=== PATIENT | female | born 1980 | race Caucasian/White ===

== ENCOUNTER 2017-01-17 06:30 | Day surgery (SDC) | payer MEDICAID ==
[2017-01-10 10:13] VITALS: BMI 21.9
[2017-01-16 17:09] VITALS: BMI 23.2
[~2017-01-17] VITALS: Ht 162.6 cm; Wt 61.9 kg
[~2017-01-17 06:30] MED LIST: CEFAZOLIN 1 GM/50 ML (PMX) 50 ML IVPB ONE; SOD CHLORIDE 0.9% 1,000 ML IV SCH
[2017-01-17] MEDS ORDERED: LIDOCAINE 2% (SDV) 5 ML INJ ONE (07:00)
[2017-01-17 07:11] VITALS: Ht 162.6 cm; Wt 61.9 kg
[2017-01-17 07:12] VITALS: BP 98/65; PULSE 64; RESP 18
[2017-01-17] MEDS ORDERED: PROPOFOL 60 ML ONE (08:51)
[2017-01-17] MEDS ORDERED: FENTAnyl 50 MCG/ML VIAL ONE (08:52)
[2017-01-17] MEDS ORDERED: DEXAMETHASONE 4 MG/ML 1 ML INJ ONE (08:59)
[2017-01-17] MEDS ORDERED: CEFAZOLIN 1 GM INJ ONE (08:59)
[2017-01-17 09:31] VITALS: BP 97/52; PULSE 73; RESP 19
[2017-01-17 09:36] VITALS: BP 94/52; PULSE 81; RESP 19
[2017-01-17 09:58] VITALS: BP 102/68; PULSE 70; RESP 19
[2017-01-17] MEDS ORDERED: EPHEDrine SULFATE 50 MG/5 ML SYG IV PRN (10:00)
[2017-01-17] MEDS ORDERED: FENTAnyl 50 MCG/ML VIAL IV PRN ×3 (10:00)
[2017-01-17] MEDS ORDERED: MEPERIDINE 25 MG INJ IV PRN (10:00)
[2017-01-17] MEDS ORDERED: hydrALAzine 20 MG INJ IV PRN (10:00)
[2017-01-17] MEDS ORDERED: LABETALOL HCL 20MG INJ IV PRN (10:00)
[2017-01-17] MEDS ORDERED: DIPHENHYDRAMINE 50 MG INJ IV PRN (10:00)
[2017-01-17] MEDS ORDERED: ONDANSETRON 4 MG INJ IV PRN (10:00)
[2017-01-17] MEDS ORDERED: OXYCODONE/ACETAMINOPHEN (5/325) TAB PO PRN ×2 (10:00)
[2017-01-17 10:15] VITALS: BP 105/64; PULSE 65; RESP 18
--- NOTE | 2017-01-21 09:32 | OPR ---
DATE OF OPERATION: 01/17/2017 PREOPERATIVE DIAGNOSIS: Right breast mass. POSTOPERATIVE DIAGNOSIS: Right breast mass. OPERATION PERFORMED: Excision of right breast mass. ANESTHESIA: General. ANESTHESIOLOGIST: Dr. Disla. SURGEON: Dr. Cavazos. COMMERCIAL SALES MANAGER: Dr. Sparks. INDICATIONS FOR PROCEDURE: Patient is a 36-year-old female, hypertension presented with enlarging right breast mass. 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 The patient was counseled as to the need for excision. She consented and was scheduled for surgery. OPERATIVE PROCEDURE: Patient was brought to the operating theater and placed under general endotracheal tube anesthesia. The right breast was prepped and draped in usual sterile fashion. The palpable mass was in the upper outer quadrant of the breast. Curvilinear incision was made directly over it. Subcutaneous tissue was dissected with cautery. 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 It was enucleated with a gloved finger and then finally transected with cautery. Specimen was sent for permanent pathologic analysis. The wound was irrigated. Minimal bleeding was controlled with cautery and the skin was then reapproximated with a deep dermal layer of 4-0 Vicryl sutures in an interrupted fashion followed by skin approximation with 5-0 PDS suture in subcuticular fashion. Benzoin and Steri-Strips were applied. The patient tolerated procedure well. ESTIMATED BLOOD LOSS: 10 mL. COMPLICATIONS: There were no complications. The patient was transferred in stable condition to the recovery room where a circumferential compression dressing was applied. Dictated By: Dom Cavazos MD /earline/zane /Document#: [id number]
== END 2017-01-17 11:15 | disposition home or self-care (01) ==
LOC: SDS 06:30
PROVIDERS: ATTEND Surgery Surgical Oncology
DX: D24.1 Benign neoplasm of right breast (principal)
CPT/HCPCS: 19120; 88307; J0690; J1100; J3010; Z7512; Z7610